=== PATIENT | male | born 1980 | race Caucasian/White ===

== ENCOUNTER 2019-11-12 11:32 | Emergency (ER) | payer BC ==
[2019-11-12] MEDS ORDERED: DIPH/PERTUSS(ACELL)/TETANUS VAC/PF 0.5 ML SYR (>=10YO) IM ONE ×2 (12:02→16:30)
[2019-11-12] MEDS ORDERED: HYDROCODONE/ACETAMINOPHEN 5-325 MG TABLET PO ONE ×2 (12:02→16:30)
--- NOTE | 2019-11-12 12:04 | ER Document Report ---
ED Medical Screen (RME) - General Chief Complaint: Finger Injury Stated Complaint: FINGER INJURY Time Seen by Provider: 11/12/19 11:59 Primary Care Provider: JONATHAN PRIDE [Primary Care Provider] - Follow up as needed Information source: Patient Notes: Patient stuck his hand underneath a lawnmower deck cutting his right second and third fingers on the lawnmower blade. Patient with significant damage to the distal tip of the right third finger. Patient is right-hand dominant. I have greeted and performed a rapid initial assessment of this patient. A comprehensive ED assessment and evaluation of the patient, analysis of test results and completion of the medical decision making process will be conducted by additional ED providers. - Related Data Allergies/Adverse Reactions: No Known Allergies Allergy (Verified 11/12/19 11:56) Physical Exam - Vital signs Vitals: Temp Pulse Resp BP Pulse Ox 98.4 F 70 18 142/100 H 99 11/12/19 11:39 11/12/19 11:39 11/12/19 11:39 11/12/19 11:39 11/12/19 11:39 - General Notes: Superficial laceration to the right second finger tip, laceration to the distal tip of the right third finger Course - Vital Signs Vital signs: Temp Pulse Resp BP Pulse Ox 98.4 F 70 18 142/100 H 99 11/12/19 11:39 11/12/19 11:39 11/12/19 11:39 11/12/19 11:39 11/12/19 11:39 Doctor's Discharge - Discharge Referrals: JONATHAN PRIDE [Primary Care Provider] - Follow up as needed
--- NOTE | 2019-11-12 12:29 | RADIOLOGY REPORT (SQ) ---
EXAM DESCRIPTION: FINGER RIGHT IMAGES COMPLETED DATE/TIME: 11/12/2019 12:18 pm REASON FOR STUDY: r 3rd finger vs lawnmower blade COMPARISON: None. NUMBER OF VIEWS: Three views. TECHNIQUE: AP, lateral, and oblique images acquired of the right long finger LIMITATIONS: None. FINDINGS: MINERALIZATION: Normal. BONES: Comminuted nondisplaced fracture of the distal tuft of the long finger distal phalanx is noted . SOFT TISSUES: Soft tissue defects are noted over the distal aspect of the long finger. OTHER: No other significant finding. IMPRESSION: Presumed open nondisplaced comminuted tuft fracture of the right long finger with overly ing soft tissue defects. COMMENT: SITE OF TRAUMA/COMPLAINT MARKED/STAMP COMPLETED: YES. TECHNICAL DOCUMENTATION: JOB ID: [id number] 2010 [employer]- All Rights Reserved Reading location - IP/workstation name: [email or web address]
[2019-11-12] MEDS ORDERED: LIDOCAINE 1% INJ-PF (10 MG/ML) 30 ML SDV INJ ONE (16:27)
[2019-11-12] MEDS ORDERED: BUPIVACAINE HCL 0.5 % INJ/PF 30 ML SDV INJ ONE (16:27)
--- NOTE | 2019-11-12 16:29 | ER Document Report ---
ED Wound - General Chief Complaint: Laceration Stated Complaint: FINGER INJURY Time Seen by Provider: 11/12/19 11:59 Primary Care Provider: LADAN FIERRO MD [ACTIVE STAFF] - Follow up in 3-5 days JONATHAN PRIDE [NO LOCAL MD] - Follow up as needed DORINDA JIANG JR, DO [ACTIVE PROVISIONAL STAFF] - Follow up in 3-5 days JOHNSON GUY DO [ACTIVE STAFF] - Follow up in 3-5 days Notes: Patient is a 39-year-old male who presents to the emergency department with a chief complaint of a laceration to his right first and second digits. Patient is right-handed. Patient states that he was cleaning the grass out of the la wnmower and cut his finger on the blade. - Related Data Allergies/Adverse Reactions: No Known Allergies Allergy (Verified 11/12/19 11:56) Past Medical History - General Information source: Patient - Social History Smoking Status: Former Smoker Family History: Reviewed & Not Pertinent Patient has homicidal ideation: No Review of Systems - Review of Systems Notes: REVIEW OF SYSTEMS: CONSTITUTIONAL : Denies recent illness. Denies recent unintentional weight loss. Denies fever, chills, or sweats. EENT: Denies eye, ear, throat, or mouth pain, discharge, or symptoms. Denies nasal or sinus congestion. CARDIOVASCULAR: Denies chest pain. RESPIRATORY: Denies shortness of breath, cough, congestion, difficulty breathing, or wheezing. GASTROINTESTINAL: Denies nausea, vomiting, and diarrhea. Denies abdominal pain. Denies constipation. GENITOURINARY: Denies difficulty urinating, burning, blood in urine, urgency or frequency. MUSCULOSKELETAL: Denies neck and back pain. See HPI. SKIN: See HPI. HEMATOLOGIC : Denies easy bruising or bleeding. LYMPHATIC: Denies swollen, painful, enlarged glands. NEUROLOGICAL: Denies no numbness or tingling denies weakness. Denies headache. Denies altered mental status. Denies alteration in speech. PSYCHIATRIC: Denies stress, anxiety, alteration in sleep patterns, or dep ression. All other systems reviewed and negative. Physical Exam - Vital signs Vitals: Temp Pulse Resp BP Pulse Ox 98.4 F 70 18 142/100 H 99 11/12/19 11:39 11/12/19 11:39 11/12/19 11:39 11/12/19 11:39 11/12/19 11:39 - Notes Notes: PHYSICAL EXAMINATION: GENERAL: Appears well, healthy, well-nourished, no acute distress. HEAD: Normocephalic, atraumatic. EYES: PERRL, conjunctiva normal, all extraocular movements intact, sclera nonicteric ENT: Moist mucous membranes. NECK: Supple, no noticeable swelling, redness, rash. Normal range of motion. LUNGS: Equal breath sounds bilaterally and clear to auscultation. No wheezes rales or rhonchi. CARDIOVASCULAR: S1-S2, regular rate, regular rhythm. Radial pulses 2+, normal. ABDOMEN: Normoactive bowel sounds. Soft, nontender, no guarding, no rebound tenderness, and no masses palpated. EXTREMITIES: Normal strength and range of motion, no pitting or edema. No cyanosis. NEUROLOGICAL: Moves all extremities upon command. Strength 5/5 in all extremities. PSYCH: Normal mood, normal affect. SKIN: Warm, dry. Large avulsion noted to right third digit. Small laceration noted to patient's distal right second digit Course - Re-evaluation Re-evalutation: 11/12/19 17:57 Differential diagnosis includes but is not limited to: Laceration, foreign body, arterial injury, nerve injury, fracture or tendon injury. Patient was able to flex and extend her digits against resistance distal to the laceration with no apparent tendon injury, CMSintact distal to the injury with no evidence of nerve damage, bleeding was well-controlled in the emergency department. X-ray was obtained and there is a fracture. Wound was repaired. See procedure note. Patient will be started on Augmentin. Follow-up precautions were given. Verbal discharge instructions were given to the patient. They verbalized understanding. They are stable for discharge. - Vital Signs Vital signs: Temp Pulse Resp BP Pulse Ox 97.8 F 75 15 128/80 H 100 11/12/19 18:18 11/12/19 18:18 11/12/19 18:18 11/12/19 18:18 11/12/19 18:18 Procedures - Laceration/Wound Repair Right Distal 3rd digit Wound length (cm): 3 Wound's Depth, Shape: Irregular, Flap Anesthetic type: 0.5% Bupivacaine - And 1% lidocaine Volume Anesthetic (mLs): 10 Wound explored: Clean, No foreign body removed Wound Repaired With: Sutures Suture Size/Type: 5:0, Nylon Number of Sutures: 16 Post-procedure wound care: Sterile dressing applied Post-procedure NV exam normal: Yes Complications: No Hands front picture: 1 - Large avulsion 2 - Small laceration Discharge - Discharge Clinical Impression: Open finger fracture Qualifiers: Encounter type: initial encounter Finger: middle finger Phalanx: distal Fracture alignment: displaced Laterality: right Qualified Code(s): S62.632B - Displaced fracture of distal phalanx of right middle finger, initial encounter for open fracture Condition: Stable Disposition: HOME, SELF-CARE Instructions: Prophylactic Antibiotic ([facility]), Soap Cleansing ([facility]), Tetanus Immunization Given ([facility]) Additional Instructions: You were seen today in the emergency department for a laceration to your right third finger. Sutures were placed to help close the area. You have a fracture. Please follow-up with orthopedics in regards to this visit. Call them tomorrow and make an appointment. Take ibuprofen 600 mg every 6 hours as needed for the pain. He can also take Tylenol 1000 mg every 6 hours for the pain. Keep your finger in the splint. You can wash your hands and apply triple antibiotic ointment twice a day. Prescriptions: Amoxicillin/Potassium Clav [Augmentin 875-125 Tablet] 1 tab PO BID #[id number] tab Referrals: SHNANEN,JONATHAN [NO LOCAL MD] - Follow up as needed DORINDA JIANG JR, DO [ACTIVE PROVISIONAL STAFF] - Follow up in 3-5 days LADAN FIERRO MD [ACTIVE STAFF] - Follow up in 3-5 days JOHNSON GUY DO [ACTIVE STAFF] - Follow up in 3-5 days
[2019-11-12] MEDS ORDERED: AMOXICILLIN TR/POT CLAVULANATE 875-125 MG TAB PO ONE (17:58)
[2019-11-12 18:20] VITALS: BP 128/80
== END 2019-11-12 18:18 | disposition home or self-care (01) ==
LOC: ER 11:32
PROC: 0HQFXZZ Repair Right Hand Skin, External Approach (ICD-10-PCS; principal; 2019-11-12)
DX: S62.632B Displaced fracture of distal phalanx of right middle finger, initial encounter for open fracture (principal); S61.210A Laceration without foreign body of right index finger without damage to nail, initial encounter; W45.8XXA Other foreign body or object entering through skin, initial encounter; W22.8XXA Striking against or struck by other objects, initial encounter; Y93.H2 Activity, gardening and landscaping; Z87.891 Personal history of nicotine dependence
CPT/HCPCS: 12002; 99283; 90471; 73140; 90715; J3490 ×3